=== PATIENT | female | born 1990 | race Caucasian/White ===

== ENCOUNTER 2021-02-27 19:02 | Emergency (ER) | payer BC, SELFPAY ==
[2021-02-27 19:13] VITALS: BP 131/79; PULSE 109; RESP 16; TEMP 37.1; O2SAT 99
--- NOTE | 2021-02-27 19:36 | ED.GENADULT ---
HPI - General Adult General Chief complaint: Extremity Problem,Nontraumatic Stated complaint: R HIP PAIN Time Seen by Provider: 02/27/21 19:36 Source: patient and RN notes reviewed Mode of arrival: ambulatory Limitations: no limitations History of Present Illness HPI narrative: 31-year-old 28-week gestational female presents with complaints of right hip pain for the past 1.5 weeks. Wu reports increasing pain in RT hip the bigger she gets with her . Tylenol, last taken on 02/26/21 with little to no relief. No known injury. History of Arthritis. Denies radiation of pain. No numbness or tingling or bleeding. ?No swelling. ?No loss of mobility. ?Exacerbating factor consists of certain movements, too much walking, and laying on the RT side too long. ?No relieving factors. Denies recent travel or long car rides. No history of DVT or PE. No chest pain or dyspnea. ?Remains active. ?The patient reports she has not been diagnosed with COVID-19. The patient reports she received 2 Moderna COVID-19 vaccines. The patient reports she is not waiting for the results of a COVID-19 lab test. The patient reports she does not have fever, chills, weakness, fatigue, myalgia, or facial swelling. ?The patient reports she does not have a new or worsening cough. The patient reports she does not have any rhinorrhea, congestion, sore throat, loss of taste or smell, nausea, vomiting, abdominal pain, and diarrhea. ?Tolerating po intake well. ?Denies concerns for COVID-19 or exposures. ?At this time, the patient is not suspected of having COVID-19. Some parts of this dictation were generated by voice recognition software and may contain typographical and/or grammatical inaccuracies. Related Data Home Medications Medication Instructions Recorded Confirmed No Home Medications 02/27/21 02/27/21 Allergies Allergy/AdvReac Type Severity Reaction Status Date / Time amoxicillin Allergy Rash Verified 02/27/21 19:16 Review of Systems Review of Systems: Narrative: CONSTITUTIONAL: Denies fever, chills, sweats. EYES: Denies visual changes, redness, discharge. ENT: Denies rhinorrhea, congestion, sore throat, otalgia. CARDIOVASCULAR: Denies chest pain, palpitations, edema. RESPIRATORY: Denies dyspnea, wheezing, cough. GASTROINTESTINAL: Denies abdominal pain, nausea, vomiting, diarrhea. GENITOURINARY: Denies dysuria, hematuria, abnormal discharge SKIN: Denies rash or itching. MUSCULOSKELETAL: Denies acute back pain or myalgia. Complaints of Right hip pain. NEUROLOGIC: Denies numbness or focal weakness. PSYCHIATRIC: Denies anxiety or depression. All systems reviewed & are unremarkable except as noted in HPI and below. [facility] Past Medical History Medical History (Updated 02/28/21 @ 00:01 by Elida Huston) Arthritis Asthma 28 weeks Surgical History Surgical History (Updated 02/27/21 @ 19:48 by JOSE MANUEL Braun) No significant past surgical history Family History Family History (Updated 02/27/21 @ 19:48 by JOSE MANUEL Braun) Father Hypertension Mother Carcinoma of colon Social History Social History (Updated 02/27/21 @ 19:49 by JOSE MANUEL Braun) Smoking status: Former smoker Smoking end date: 07/07/20 Alcohol intake: never Substance use: never Substance use type: does not use Living arrangements: with family Occupation/Education: unemployed Gender identity (if verbalized by the patient): Female Sexual Orientation (if Verbalized by the Patient): Straight or Heterosexual Comments At time of signature, agree with the nurse past medical, surgical, social, and family history. There is relevant patient's past medical history pertinent to the presenting complaint and no relevant family history pertinent to the presenting complaint. Exam Narrative: Exam Narrative: GENERAL: This is a well-nourished, well-developed patient, in no apparent distress. Speaking in full
--- NOTE | 2021-02-27 19:55 | PC.NURSE ---
heart tones 144/minute
== END 2021-02-27 20:03 | disposition home or self-care (01) ==
PROVIDERS: Emergency Provider Nurse Practitioner Family
DX: O99.891 Other specified diseases and conditions complicating pregnancy (principal); Z3A.28 28 weeks gestation of pregnancy; M25.551 Pain in right hip; M19.90 Unspecified osteoarthritis, unspecified site; O99.512 Diseases of the respiratory system complicating pregnancy, second trimester; J45.909 Unspecified asthma, uncomplicated
CPT/HCPCS: 99202; G0463

== ENCOUNTER 2021-03-10 02:04 | Observation (INO) | payer BC, MEDICAID, SELFPAY ==
[2021-03-10 02:28] VITALS: BP 122/65; PULSE 82
--- NOTE | 2021-03-10 05:10 | OBADM ---
This patient, Wu Gold, admitted to the OB room OB Post 116 for observation. Patient/family oriented to hospital policies and general routines including ID bracelet, bed and alarms, visiting hours, pain management, procedures, bathroom and other care routines, personal items, smoking policy, room service/diet, and visiting hours. Patient/Family are encouraged to report perceived risks to care and to ask questions if they do not understand what they are told or what they should do.
[2021-03-10 05:26] LABS: Fetal Fibronectin Negative
--- NOTE | 2021-03-15 07:46 | PM.OBTRLD ---
OB - Triage/Final Diagnosis Visit Information Comments/Additional reasons for admission: I have assessed the risk for this patient, Wu Gold, and determined that she would benefit from observation care. Evaluation Laboratory results: Laboratory Tests 03/10/21 03/10/21 03/10/21 04:25 05:43 05:43 C.trachomatis RNA (TMA) Not detected N.gonorrhoeae RNA (TMA) Not detected Trichomonas Direct ID Negative Fibronectin Negative Final Diagnosis (1) contractions: Code(s): O47.00 - False labor before 37 completed weeks of gestation, unspecified trimester Status: Acute
== END 2021-03-10 07:35 | disposition home or self-care (01) ==
PROVIDERS: Admitting Provider Obstetrics & Gynecology; Visit Provider Obstetrics & Gynecology
DX: O47.03 False labor before 37 completed weeks of gestation, third trimester (principal); Z3A.29 29 weeks gestation of pregnancy
CPT/HCPCS: 82731; 87491; 87591; 87808; G0378; G0379

== ENCOUNTER 2021-03-11 20:13 | Observation (INO) | payer BC, MEDICAID, SELFPAY ==
[2021-03-11] VITALS (7 sets, daily range): BP systolic 105–120; BP diastolic 60–73; PULSE 74–82; TEMP 36.9
--- NOTE | 2021-03-11 20:30 | PC.NURSE ---
Pt was here 03-10-2021 with cramping. Fibronectin was negative. PT states she has has had cramping since 1700 this evening.
--- NOTE | 2021-03-11 21:00 | PC.NURSE ---
Pt does not feel contractions since arrival.
--- NOTE | 2021-03-11 22:30 | PC.NURSE ---
Pt does not feel contractions since arrival. Pt dad states they live near and will return if pt feels contractions. PTL precautions reviewed. Cervix closed.
--- NOTE | 2021-04-04 18:52 | PM.OBTRLD ---
OB - Triage/Final Diagnosis Visit Information Comments/Additional reasons for admission: I have assessed the risk for this patient, Wu Gold, and determined that she would benefit from observation care. Final Diagnosis (1) contractions: Code(s): O47.00 - False labor before 37 completed weeks of gestation, unspecified trimester Status: Acute
== END 2021-03-11 22:26 | disposition home or self-care (01) ==
PROVIDERS: Admitting Provider Obstetrics & Gynecology; Visit Provider Obstetrics & Gynecology
DX: O47.03 False labor before 37 completed weeks of gestation, third trimester (principal); Z3A.30 30 weeks gestation of pregnancy
CPT/HCPCS: G0378; G0379

== ENCOUNTER 2021-05-16 17:30 | Inpatient (IN) | payer MEDICAID, SELFPAY ==
[2021-05-16] VITALS (15 sets, daily range): BP systolic 113–143; BP diastolic 62–92; PULSE 83–107; TEMP 37
[2021-05-16 18:17] LABS: Basophils Percent Auto 0.3 % (0.2-1.2); Eosinophils Percent Auto 0.3 % (0-4.4); Hematocrit 34.6 % (37.0-47.0); Hemoglobin 11.5 g/dL (12.0-15.0); Immature Granulocyte Absolute 0.05 K/mm3 (0.00-0.031); Immature Granulocyte Percent A 0.5 % (0-0.5); Lymphocytes Absolute Auto 2.16 K/mm3 (0.9-3.2); Lymphocytes Percent Auto 21.9 % (18.3-44.2); Mean Corpuscular HGB Conc 33.2 g/dl (32-36); Mean Corpuscular Volume 90.3 fl (80-100); Mean Platelet Volume 10.5 fl (7.4-10.4); Monocytes Absolute Auto 0.4 K/mm3 (0.1-0.6); Monocytes Percent Auto 3.8 % (2.6-8.5); Neutrophils Absolute Auto 7.2 K/mm3 (1.3-6.7); Neutrophils Percent Auto 73.2 % (45.5-73.1); Platelet Count Result 239 k/mm3 (150-375); Red Blood Count 3.83 M/mm3 (4.2-5.4); Red Cell Distribution Width 12.1 % (11.5-14.5); White Blood Count 9.9 K/mm3 (4.5-10.0)
[2021-05-16] MEDS: ceFAZolin 2 GM/D5W 50 ML 2 GM/50 ML BAG IVPB (18:38)
[2021-05-16] MEDS: DINOPROSTONE 10 MG VAG INSERT VAGINAL (18:41)
[2021-05-16] MEDS: ONDANSETRON INJ 4 MG/2 ML VIAL IV PUSH (19:52)
[2021-05-16] MEDS: ZOLPIDEM TARTRATE (*CRX) 5 MG TABLET PO (21:30)
[2021-05-17] VITALS (108 sets, daily range): BP systolic 76–137; BP diastolic 43–89; PULSE 67–119; TEMP 36.6–37.8; O2SAT 95–100
[2021-05-17] MEDS: ONDANSETRON INJ 4 MG/2 ML VIAL IV PUSH ×2 (02:44→11:22)
[2021-05-17] MEDS: fentaNYL CITRATE INJ (*CRX) 100 MCG/2 ML VIAL 50 MCG IV PUSH ×5 (03:36→16:39)
[2021-05-17] MEDS: FAMOTIDINE 20 MG/2 ML VIAL IV PUSH (05:43)
[2021-05-17 06:58] LABS: Rapid Plasma Reagin Non-Reactive (NonReactive)
[2021-05-17] MEDS: METOCLOPRAMIDE HCL INJ 10 MG/2 ML VIAL IV PUSH ×2 (07:31→16:39)
--- NOTE | 2021-05-17 07:39 | PM.IMHP ---
H&P: HPI History of Present Illness Date/Time: 05/17/21 07:39 Chief Complaint: induction of labor Narrative: Wu is a 31yo at 39.1 for elective IOL for social reasons- so adoptive parents can be present from out of state. s/p cervidil #1. Feeling contractions. Nausea since pain meds. Her fiance very early in the . She has a low IQ and lives with her dad who is her support system. Review of Systems Review of Systems: All systems reviewed & are unremarkable except as noted in HPI and below PMFSH Past Medical History Medical History (Updated 03/15/21 @ 07:46 by Annemarie Celis MD) Arthritis Asthma 28 weeks Surgical History Surgical History (Updated 02/27/21 @ 19:48 by JOSE MANUEL Braun) No significant past surgical history Family History Family History Father Hypertension Mother Carcinoma of colon Social History Social History (Updated 02/27/21 @ 19:49 by JOSE MANUEL Braun) Smoking status: Former smoker Smoking end date: 07/07/20 Alcohol intake: never Substance use: never Substance use type: does not use Gender identity (if verbalized by the patient): Female Sexual Orientation (if Verbalized by the Patient): Straight or Heterosexual Spiritual care concerns: No Meds Home Medications and Allergies Home Medications Medication Instructions Recorded Confirmed Type 1 tablet PO DAILY 03/10/21 04/22/21 History sertraline 50 mg PO DAILY 04/22/21 04/22/21 History Allergies Allergy/AdvReac Type Severity Reaction Status Date / Time amoxicillin Allergy Rash Verified 02/27/21 19:16 Exam Const: General: no acute distress Resp: Effort & Inspection: normal respiratory effort Auscultation: clear to auscultation bilaterally Cardio: Rate: regular rate Rhythm: regular rhythm GI: GI Palp: Yes Soft to palpation Extrem: General: normal to inspection H&P: Results Labs Labs: Short CBC 05/16/21 Range/Units 18:04 WBC 9.9 (4.5-10.0) K/mm3 Hgb 11.5 L (12.0-15.0) g/dL Hct 34.6 L (37.0-47.0) % Plt Count 239 (150-375) k/mm3 Assessment and Plan Additional Plan Here for induction of labor-elective GBS pos- antibiotics running cervidil #2 after shower and breakfast Discussed POC with pt, her father, and the adoptive parents. FHT category 1
[2021-05-17] MEDS: DINOPROSTONE 10 MG VAG INSERT VAGINAL (10:40)
--- NOTE | 2021-05-17 13:31 | WPDANESEPP ---
Anes - Eval Pre Procedure Procedure: labor epidural Date/Time: 05/17/21 13:31 Surgeon: salima Pre Op Diagnosis: IOL Patient Data Age: 31 Gender: F Height: Weight: Allergies Allergy/AdvReac Type Severity Reaction Status Date / Time amoxicillin Allergy Rash Verified 02/27/21 19:16 Home Medications Medication Instructions Recorded Confirmed Type 1 tablet PO DAILY 03/10/21 04/22/21 History sertraline 50 mg PO DAILY 04/22/21 04/22/21 History Laboratory Tests 05/16/21 05/16/21 05/16/21 18:04 18:04 18:04 WBC 9.9 K/mm3 K/mm3 (4.5-10.0) RBC 3.83 M/mm3 L M/mm3 (4.2-5.4) Hgb 11.5 g/dL L g/dL (12.0-15.0) Hct 34.6 % L % (37.0-47.0) MCV 90.3 fl fl (80-100) MCH 30.0 pg pg (26-34) MCHC 33.2 g/dl g/dl (32-36) RDW 12.1 % % (11.5-14.5) Plt Count 239 k/mm3 k/mm3 (150-375) MPV 10.5 fl H fl (7.4-10.4) Immature Gran % (Auto) 0.5 % % (0-0.5) Neut % (Auto) 73.2 % H % (45.5-73.1) Lymph % (Auto) 21.9 % % (18.3-44.2) Evangeline % (Auto) 3.8 % % (2.6-8.5) Eos % (Auto) 0.3 % % (0-4.4) Baso % (Auto) 0.3 % % (0.2-1.2) Lymph # (Auto) 2.16 K/mm3 K/mm3 (0.9-3.2) Evangeline # (Auto) 0.4 K/mm3 K/mm3 (0.1-0.6) Eos # (Auto) 0.0 K/mm3 K/mm3 (0-0.3) Baso # (Auto) 0.0 K/mm3 K/mm3 (0.0-0.1) Abs Immat Gran (auto) 0.05 K/mm3 H K/mm3 (0.00-0.031) Absolute Neuts (auto) 7.2 K/mm3 H K/mm3 (1.3-6.7) Absolute Nucleated RBC 0.0 K/mm3 K/mm3 (0.0-0.012) Nucleated RBC % 0.0 % % (0.0-0.2) RPR Non-reactive (NonReactive) Blood Type A Positive Antibody Screen Negative Patient hx anesthesia problems: none Family hx anesthesia problems: none Results Review: All pre-operative results and documents have been reviewed as part of the pre-operative evaluation. [facility] Past Medical History Medical History (Updated 03/15/21 @ 07:46 by Annemarie Celis MD) Arthritis Asthma 28 weeks Surgical History Surgical History (Updated 02/27/21 @ 19:48 by JOSE MANUEL Braun) No significant past surgical history Family History Family History Father Hypertension Mother Carcinoma of colon Social History Social History (Updated 02/27/21 @ 19:49 by JOSE MANUEL Braun) Smoking status: Former smoker Smoking end date: 07/07/20 Alcohol intake: never Substance use: never Substance use type: does not use Gender identity (if verbalized by the patient): Female Sexual Orientation (if Verbalized by the Patient): Straight or Heterosexual Spiritual care concerns: No Exam Day of Procedure 05/17/21 13:31
[2021-05-17] MEDS: OXYTOCIN 30 UNITS/NS 500 ML 30 UNITS/500 ML BAG 6 UNITS IV CONT (17:56)
[2021-05-17] MEDS: LACTATED RINGERS 1,000 ML 125 ML IV CONT ×2 (18:04→21:37)
[2021-05-18] VITALS (111 sets, daily range): BP systolic 96–146; BP diastolic 45–135; PULSE 62–135; RESP 16–18; TEMP 36.6–38; O2SAT 89–100
[2021-05-18] MEDS: ONDANSETRON INJ 4 MG/2 ML VIAL IV PUSH (01:21)
[2021-05-18] MEDS: METHYLERGONOVINE MALEATE 0.2 MG/ML VIAL IM (05:53)
--- NOTE | 2021-05-18 06:05 | PM.OBPRVD ---
OB - Delivery Note Procedure Delivery date: 05/18/21 Procedure: Induction method: per pitocin protocol and per cervidil protocol Delivery monitor: external FHT and external uterine Route of delivery: Laceration Description: Perineal - 2nd Degree Delivery repair: vicryl Specimen: No Quantitative Blood Loss (ml): 500 Anesthesia type: Epidural Disposition: floor Narrative: With adequate expulsive efforts by the mother, the baby's head was delivered OA. The baby's anterior shoulder was delivered under the pubic symphysis without difficulty. The posterior shoulder and the rest of the baby delivered without difficulty. The was placed on the mothers chest and suctioned and stimulated. The cord was clamped and cut after 30 seconds. Mother and baby both stable. After the delivery of the placenta, atony resulted in a mild hemorrhage of about 500cc total. IM methergine was given along with pitocin and some membranes were teased from the uterus using a ring forceps with resolution of the atony. Baby Date of : 05/18/21 Time of : 05:36 Weeks of gestation at delivery: 39 gender: Female Weight (pounds): 7 Weight (ounces): 13 presentation: vertex Placenta delivery description: Spontaneous cord vessel description: 3 Vessels and Delayed Cord Clamping score one minute: 8 score five minutes: 9
[2021-05-18] MEDS: OXYTOCIN 30 UNITS/NS 500 ML 30 UNITS/500 ML BAG 125 UNITS IV CONT (06:20)
[2021-05-18] MEDS: IBUPROFEN 600 MG TABLET PO ×2 (06:46→18:23)
[2021-05-18] MEDS: BENZOCAINE 20% AER SPR (*SP) 56 GM CAN 1 SPRAY TOPICAL (06:48)
[2021-05-18] MEDS: WITCH HAZEL 40 PADS 1 PAD TOPICAL (06:48)
--- NOTE | 2021-05-18 09:15 | OBPPTRN ---
Patient transferred to post room # 291 via wheelchair. Support person present. Oriented to unit, room, information board, rooming in, admission packet and security measures. PT introductions made and plan of care discussed per post , pain management, bottle feeding, daily care activities and PT and adoptive parents relationship and plan for infant care. PT received such instructions per one to one instructions, mom baby care guide and demonstrations. Pt and her father both recipients of such instructions during this shift. Patient verbalizes understanding.
[2021-05-18] MEDS: DOCUSATE SODIUM 100 MG CAPSULE PO ×2 (11:45→18:24)
[2021-05-18] MEDS: ACETAMINOPHEN 325 MG TABLET 650 MG PO ×2 (11:46→18:22)
[2021-05-18] MEDS: SERTRALINE HCL 50 MG TABLET PO (20:34)
[2021-05-19] VITALS: BP 120/75; PULSE 66; RESP 16; TEMP 36.5; O2SAT 100
[2021-05-19] MEDS: IBUPROFEN 600 MG TABLET PO ×4 (00:17→23:29)
[2021-05-19] MEDS: ACETAMINOPHEN 325 MG TABLET 650 MG PO ×4 (00:17→23:29)
[2021-05-19 04:00] VITALS: BP 120/79; PULSE 65; RESP 16; TEMP 36.5; O2SAT 100
[2021-05-19 04:48] LABS: Hematocrit 28.4 % (37.0-47.0); Hemoglobin 9.3 g/dL (12.0-15.0)
--- NOTE | 2021-05-19 07:41 | PM.OBPNVD ---
OB - PN: Subj Subjective Date/time seen: 05/19/21 07:41 Patient comments: no complaints and pain well controlled Narrative: Doing ok. Emotionally says it is starting to hit her. Physically doing well but wants to stay one mroe night. OB - PN: Obj Data Labs CBC & Chem 7: 05/19/21 03:47 Labs: Laboratory Results - last 24 hr 05/19/21 03:47 Hgb 9.3 L Hct 28.4 L OB - PN A/P Plan day: 1 Plan: routine care Comments: doing well, wants to stay one more day discussed she is at risk for pp depression, will do close follow up in office in 1 week. Time Spent With Patient Time: Total time spent is greater than 50% in coordination of care (as documented) at patient's floor/unit and/or counseling patient: Time with patient: less than 15 minutes Exam Narrative: NAD abdomen soft, nontender, fundus firm below the umbilicus Extremities nontender, 1+ edema
[2021-05-19 08:45] VITALS: BP 124/70; PULSE 72; RESP 16; TEMP 36.5; O2SAT 98
--- NOTE | 2021-05-19 09:00 | PC.NURSE ---
PT introductions made and plan of care discussed per post , pain management, daily care activities. PT recipient of such instructions and received instructions per one to one discussion, mom baby care guide and demonstrations. pt appears slow and requires repetition of instructions but is very eager to learn and asks a lot of questions. PT verbalizes understanding of such care.
[2021-05-19 09:30] VITALS: PULSE 72; RESP 16; O2SAT 98
[2021-05-19] MEDS: MULTIVIT/MIN/PREN/FOL AC/IRON TABLET 1 TAB PO (09:47)
[2021-05-19] MEDS: DOCUSATE SODIUM 100 MG CAPSULE PO ×2 (09:47→17:29)
[2021-05-19] MEDS: POLYSACCHARIDE IRON COMPLEX 150 MG CAPSULE PO ×2 (09:47→17:29)
--- NOTE | 2021-05-19 14:33 | WPDANLDPN2 ---
Anes-Prog Note L&D Date/Time: 05/19/21 14:33 Comfortable throughout: labor and delivery Neuraxial method: epidural Epidural/Spinal procedure site: clean & non-tender Neuro status: Neuro function grossly intact. Cardiovascular status: normal Respiratory status: normal Airway patency: baseline Mental status: baseline Post-Op hydration status: normal Vital Signs: Last Vital Signs Temp 36.5 C 05/19/21 08:45 Pulse 72 05/19/21 08:45 Resp 16 05/19/21 08:45 BP 124/70 05/19/21 08:45 Pulse Ox 98 05/19/21 08:45 Pain score (VAS): 3 Post-procedural complaints: none Patient feedback: Patient satisfied with anesthetic care.
--- NOTE | 2021-05-19 15:50 | PCCCNOTE ---
Addendum entered by MANDEEP Malin 05/20/21 11:32: Met with Xiao, corrections caseworker with [facility] today. She also met with pt. to complete POA paperwork which was filled out and notarized. Pt. anticipates discharge today. Baby Girl (Lisandra) will likely discharge tomorrow morning. Xiao is aware and anticipates coming to the hospital at 10:30am. Pt. denies any further case management needs. Original Note: Care Coordination Consult: Met with pt. today. Pt. confirms that she is planning to have Baby Girl (Lisandra) adopted. She confirms that this is her choice and denies that she has been coerced by anyone else into this decision. Pt. reports she is using [facility], [address] [place] [address] [address], [place] [address]. Her corrections caseworker through [facility] is Xiao Rodas @ [phone]. Pt. reports she plans to stay one more night. Spoke with Xiao who confirms that she will be coming to the hospital in the morning to sign POA paperwork prior to pt. discharging. Xiao also states that either she or her boss will be available Monday once the baby discharges. Pt. denies any further case management needs.
[2021-05-19] MEDS: SERTRALINE HCL 50 MG TABLET PO (19:14)
[2021-05-19 20:00] VITALS: BP 124/79; PULSE 66; RESP 16; TEMP 36.8; O2SAT 99
[2021-05-20] MEDS: IBUPROFEN 600 MG TABLET PO (05:47)
[2021-05-20] MEDS: ACETAMINOPHEN 325 MG TABLET 650 MG PO (05:48)
--- NOTE | 2021-05-20 07:52 | PM.OBPNVD ---
OB - PN: Subj Subjective Date/time seen: 05/20/21 07:52 Patient comments: no complaints baby status: doing well OB - PN: Obj Data Labs CBC & Chem 7: 05/19/21 03:47 OB - PN A/P Plan day: 2 Plan: routine care and discharge home (F/U in 4 weeks) Time Spent With Patient Time: Total time spent is greater than 50% in coordination of care (as documented) at patient's floor/unit and/or counseling patient: Time with patient: less than 15 minutes Review of Systems Review of Systems: All systems reviewed & are unremarkable except as noted in HPI and below Exam Narrative: Fundus firm and vaginal flow controlled. No lower ext redness, warmth, or edema. Negative homans. Const: General: comfortable Chest: Breast/axilla inspection: normal inspection of the breasts Resp: Effort & Inspection: normal respiratory effort Cardio: Rate: regular rate GI: GI Palp: Yes Soft to palpation Psych: Appearance: grossly normal Affect: normal affect Attitude: cooperative Thought content: Yes Normal thought content present Judgement: Good judgement present (Psych)
[2021-05-20 08:00] VITALS: BP 137/68; PULSE 77; RESP 18; TEMP 36.9
[2021-05-20] MEDS: DOCUSATE SODIUM 100 MG CAPSULE PO (09:27)
[2021-05-20] MEDS: POLYSACCHARIDE IRON COMPLEX 150 MG CAPSULE PO (09:27)
--- NOTE | 2021-05-20 09:59 | PC.NURSE ---
Self care discharge instructions given to pt. including follow up visit date and time. Pt. verbalized understanding.
--- NOTE | 2021-05-20 11:00 | PC.NURSE ---
Pt. states that she will be seeing Dr. Celis on Monday, for OB appt. Pt also states that she doesn't feel like she needs to return for follow up visit since seeing Dr. Celis on Monday. Pt. father at side. Pt. went to adoptive parents once to see infant before discharge. Very sweet and joyful at seeing . No further questions or concerns voiced.
--- NOTE | 2021-06-07 08:25 | P.DS_ITS ---
DS: Admitting Diagnosis Discharge Date 05/20/21 Admitting Diagnosis Labor OB - DS: Summary OB Procedures : None OB Procedures Intrapartum: Spontaneous Vag Delivery OB Procedures: : None Time Spent with Patient Time attestation: Total time spent providing and/or coordinating discharge services: Discharge Plan Discharge Attending physician on discharge: Annemarie Celis Consulting providers: Jaycee Lane Discharging Clinician: Jaycee Lane Patient Disposition: Home, Self-Care Activity: pelvic rest Diet: as tolerated Discharge Instructions: Education: Mom and Baby Guide Given to: Mother Follow-Up: Call your delivering provider's office for an appointment to be seen in: 6 Weeks Mom and baby should come to the [facility] for the follow-up appointment. Appointment Date/Time: Friday, May 21, 2021 at 10:00 am What to expect at your follow-up visit: Blood Pressure Check Physical Assessment Call [phone] if you are unable to keep your appointment time. EPISIOTOMY/PERINEAL CARE: * Until bleeding stops, use your jyoti bottle after urinating * Change your pad frequently throughout the day * You may take sitz baths several times a day (fill your bathtub with warm water and soak for 20 minutes.) Do NOT bathe in the water * No tub baths until seen by your physician - You may shower ACTIVITY: * Rest as much as possible. * Do not exercise or lift anything heavier than your baby (such as laundry or other children.) * Avoid stairs or driving as much as possible. * Do not put anything into the vagina. No douching, tampons, or sexual activity until seen by physician. NOTIFY PHYSICIAN IF YOU HAVE ANY QUESTIONS OR IF ANY OF THE FOLLOWING SYMPTOMS OCCUR: * If your episiotomy becomes red, swollen, or more painful than what you have experienced in the hospital. * If your vaginal bleeding becomes foul smelling. * If your vaginal bleeding becomes more heavy than a period or if your bleeding changes from pink to bright red. However, you may pass an occasional walnut- sized clot once or twice for the first week . * If you experience a sharp, shooting pain in you calves. * If you discover a hard, reddened area on your breast or if you experience flu- like symptoms. DIET: * Eat regular, well-balanced meals. * Drink plenty of fluids daily. If , drink to thirst. Patient Instructions: Antibiotic Form Stand Alone Forms: General Discharge Information Follow-up/Referrals: Annemarie Celis MD [Physician] - 6 Weeks Discharge Medications: Continued sertraline 50 mg Tablet 50 mg PO DAILY RF: 0 28-800 mg-mcg Tablet 1 tablet PO DAILY RF: 0 Date of admission: 05/16/21 17:30 Primary Care Provider: PHYSICIAN,SENIOR MECHANICAL PROJECT MANAGER Admitting Provider: Annemarie Celis Attending physician on admission: Annemarie Celis Condition: Stable
== END 2021-05-20 11:23 | disposition home or self-care (01) | DRG 560 ==
LOC: ANHLDR 17:37 → ANHOB2 05-18 09:18
PROVIDERS: Admitting Provider Obstetrics & Gynecology; Visit Provider Obstetrics & Gynecology
DX: O99.824 Streptococcus B carrier state complicating childbirth (principal); Z37.0 Single live birth; Z3A.39 39 weeks gestation of pregnancy; O36.8330 Maternal care for abnormalities of the fetal heart rate or rhythm, third trimester, not applicable or unspecified; O70.1 Second degree perineal laceration during delivery; O99.892 Other specified diseases and conditions complicating childbirth; M19.90 Unspecified osteoarthritis, unspecified site; O99.52 Diseases of the respiratory system complicating childbirth; J45.909 Unspecified asthma, uncomplicated; O99.344 Other mental disorders complicating childbirth; F41.9 Anxiety disorder, unspecified; O72.1 Other immediate postpartum hemorrhage
CPT/HCPCS: 36415; 84112; 85014; 85018; 85025; 86592; 86850; 86900; 86901; A9270; J0131; J0690; J2210; J2405; J2590; J2765; J2795; J3010; J7120